=== PATIENT | male | born 1985 | race Caucasian/White ===

== ENCOUNTER 2022-06-30 08:57 | Emergency (ER) | payer OTHER ==
[2022-06-30 10:12] LABS: ESTIMATED GFR 89 mL/min (>60)
== END 2022-06-30 11:03 | disposition home or self-care (01) ==
LOC: JD.ED 08:57
DX: R53.1 Weakness (principal); R51.9 Headache, unspecified; I10 Essential (primary) hypertension; Z86.73 Personal history of transient ischemic attack (TIA), and cerebral infarction without residual deficits
CPT/HCPCS: 36415; 70450; 70450-26; 80053; 84484; 85025; 85610; 85730; 93005; 99285